=== PATIENT | female | born 1995 | race Caucasian/White ===

== ENCOUNTER 2018-01-23 20:19 | Inpatient (IN) | payer SELFPAY ==
[~2018-01-23] VITALS: Ht 167.6 cm; Wt 99.8 kg
[~2018-01-23 20:19] MED LIST: ALBU17AE13 IH; ibuprofen
[2018-01-23 20:34] VITALS: BP_SYST 116
[2018-01-23] MEDS ORDERED: NACL 0.9% 1,000 ML IV ONE ×2 (20:43→23:00)
[2018-01-23] MEDS ORDERED: FAMOTIDINE 20 MG TABLET PO ONE (20:45)
[2018-01-23] MEDS ORDERED: ONDANSETRON HCL 4 MG/2 ML VIAL IVP ONE (20:45)
[2018-01-23] MEDS ORDERED: MORPHINE 4 MG/ML INJ. SYRINGE IVP ONE (21:30)
[2018-01-23 22:25] LABS: HEMATOCRIT 32.2 % (36-48); HEMOGLOBIN 11.3 g/dL (12.0-16.0); MONOCYTES # (AUTO) 0.8 K/uL (0.0-1.0)
[2018-01-23 22:27] LABS: EOSINOPHILS % (AUTO) 0.4 % (0.0-4.0); LYMPHOCYTES # (AUTO) 1.9 K/uL (1.0-5.5); LYMPHOCYTES % (AUTO) 26.6 % (20.5-51.5); MEAN CORPUSCULAR HEMOGLOBIN 31 pg (27-31); MEAN CORPUSCULAR HGB CONC 35 % (32-36); MEAN CORPUSCULAR VOLUME 89 fL (79.0-98.0); MONOCYTES % (AUTO) 11.9 % (1.7-9.3); NEUTROPHILS # (AUTO) 4.4 K/uL (1.8-7.7); NEUTROPHILS % (AUTO) 61.1 % (40.0-70.0); PLATELET COUNT (AUTO) 139 K/uL (130-430); RED BLOOD CELL COUNT(AUTO) 3.62 MIL/uL (4.2-6.2); RED CELL DISTRIBUTION WIDTH 12.4 % (9.0-15.0); WHITE BLOOD COUNT (AUTO) 7.1 K/uL (4.8-10.8)
[2018-01-23 22:31] LABS: CALCIUM 8.5 mg/dL (8.4-11.0); CREATININE 0.74 mg/dL (0.55-1.30)
[2018-01-23 22:49] LABS: INR 1.1 (0.8-1.2); PROTHROMBIN TIME 11.3 SECS (9.5-12.5)
[2018-01-23 22:53] LABS: BILIRUBIN,URINE 2+ (NEGATIVE); BLOOD, URINE NEGATIVE (NEGATIVE); CLARITY/URINE CLEAR (CLEAR); COLOR,URINE AMBER (YELLOW); GLUCOSE,URINE NEGATIVE (NEGATIVE); KETONES,URINE 2+ (NEGATIVE); LEUKOCYTE ESTERASE ,URINE 3+ (NEGATIVE); NITRITE, URINE NEGATIVE (NEGATIVE); PROTEIN URINE TRACE (NEGATIVE)
[2018-01-23 22:56] LABS: ALBUMIN 2.2 g/dL (3.4-4.8); TOTAL BILIRUBIN 0.9 mg/dL (0.0-1.0)
[2018-01-23] MEDS ORDERED: cefTRIAXone 1 GM in D5W 50 ML IV ONE (23:00)
[2018-01-23 23:04] LABS: BACTERIA,URINE FEW /HPF (None Seen); TRICHOMONAS,URINE Moderate /HPF (None Seen); WBC,URINE 50-80 /HPF (0-3)
[2018-01-23] MEDS ORDERED: cefTRIAXone 1 GM VIAL ONE (23:09)
[2018-01-23] MEDS ORDERED: AZITHROMYCIN 250 MG TABLET PO ONE (23:15)
[2018-01-23] MEDS ORDERED: metroNIDAZOLE 500 MG TABLET PO ONE (23:15)
[2018-01-24] MEDS ORDERED: D5/0.45 NS 1,000 ML IV SCH (00:30)
[2018-01-24] MEDS ORDERED: ONDANSETRON HCL 4 MG/2 ML VIAL IVP PRN (00:30)
[2018-01-24] MEDS ORDERED: ACETAMINOPHEN 325 MG TABLET PO PRN (02:00)
[2018-01-24] MEDS ORDERED: TEMAZEPAM 15 MG CAPSULE PO PRN (02:15)
[2018-01-24] MEDS ORDERED: ceFAZolin SODIUM 1 GM in D5W 50 ML IV SCH (06:00)
[2018-01-24 08:08] VITALS: BP_SYST 108
[2018-01-24] MEDS ORDERED: TEMAZEPAM 15 MG CAPSULE PO SCH (21:00)
== END 2018-01-24 02:45 | disposition left against medical advice (07) | DRG 781 ==
LOC: SED 20:19 → SPU 01-24 00:17
PROVIDERS: ADMIT Specialist; ATTEND Specialist
DX: O23.43 Unspecified infection of urinary tract in pregnancy, third trimester (principal); O98.813 Other maternal infectious and parasitic diseases complicating pregnancy, third trimester; Z53.21 Procedure and treatment not carried out due to patient leaving prior to being seen by health care provider; K27.9 Peptic ulcer, site unspecified, unspecified as acute or chronic, without hemorrhage or perforation; A59.9 Trichomoniasis, unspecified; O99.613 Diseases of the digestive system complicating pregnancy, third trimester; Z3A.32 32 weeks gestation of pregnancy
CPT/HCPCS: 36415; 80053; 81000-TC; 82150-TC; 83690-TC; 84702-TC; 85025; 85610-TC; 85730-TC; 86403; 86900; 86901; 87081; 87086; 96361; 96374; 96375; 99285; J0690; J0696; J2270; J2405; J7030; J7060; Q0144

== ENCOUNTER 2018-09-27 16:31 | Emergency (ER) | payer SELFPAY ==
[~2018-09-27] VITALS: Ht 167.6 cm; Wt 86.2 kg
[2018-09-27 16:45] VITALS: BP_SYST 124
[2018-09-27] MEDS ORDERED: ONDANSETRON 4 MG ODT TAB PO ONE (17:00)
[2018-09-27 18:33] VITALS: BP_SYST 124
== END 2018-09-27 18:33 | disposition home or self-care (01) ==
LOC: SED 16:31
DX: F07.81 Postconcussional syndrome (principal); F17.200 Nicotine dependence, unspecified, uncomplicated; J45.909 Unspecified asthma, uncomplicated; Z90.49 Acquired absence of other specified parts of digestive tract
CPT/HCPCS: 70450; 81025; 99284; Q0162

== ENCOUNTER 2020-12-17 20:07 | Emergency (ER) | payer MEDICAID ==
[~2020-12-17] VITALS: Ht 167.6 cm; Wt 97.5 kg
[2020-12-17 20:18] VITALS: BP_SYST 139
[2020-12-17] MEDS ORDERED: IBUP-1971 PO (22:04)
[2020-12-17 22:15] VITALS: BP_SYST 119
== END 2020-12-17 22:15 | disposition home or self-care (01) ==
LOC: SED 20:07
DX: N64.89 Other specified disorders of breast (principal); J45.909 Unspecified asthma, uncomplicated; G47.30 Sleep apnea, unspecified; Z79.899 Other long term (current) drug therapy
CPT/HCPCS: 71250-TC; 76376; 81025; 99284

== ENCOUNTER 2024-03-29 23:20 | Emergency (ER) | payer MEDICAID ==
[~2024-03-29] VITALS: Ht 167.6 cm; Wt 123.8 kg
[~2024-03-29 23:20] MED LIST changes: +IBUP-1971 PO
[2024-03-29 23:40] VITALS: BP_SYST 110; PULSE 82; RESP 20; TEMP 97.5; O2SAT 98
[2024-03-30] MEDS: DIPHTH,PERTUSS(ACELL),TET VAC 0.5 ML VIAL (Tdap) I.M. ONE (00:47)
[2024-03-30 00:48] VITALS: BP_SYST 120; PULSE 68; RESP 20; TEMP 98.3; O2SAT 100
== END 2024-03-30 00:50 | disposition home or self-care (01) ==
LOC: SED 23:20
DX: S61.213A Laceration without foreign body of left middle finger without damage to nail, initial encounter (principal); Z23 Encounter for immunization; J45.909 Unspecified asthma, uncomplicated; Z79.899 Other long term (current) drug therapy; W26.0XXA Contact with knife, initial encounter; Y93.89 Activity, other specified; Y92.89 Other specified places as the place of occurrence of the external cause; Y99.8 Other external cause status
CPT/HCPCS: 90715; 99283